=== PATIENT | male | born 1965 | race Caucasian/White ===

== ENCOUNTER 2018-03-08 05:40 | Day surgery (SDC) | payer OTHER ==
[~2018-03-08] VITALS: Ht 175.3 cm; Wt 108.9 kg
[~2018-03-08 05:40] MED LIST: ASPIRIN EC81 MG PO; CEPHALEXIN500 MG PO; CYMBALTA30 MG PO; DILAUDID4 MG PO; FOLIC ACID0.4 MG PO; LIDODERM700 MG TOP; LISINOPRIL20 MG PO; LISINOPRIL5 MG PO; METOPROLOL TART25 MG PO; NEURONTIN300 MG PO; NORCO 5-325 TA1 EACH PO; OXYCODONE HCL E10 MG PO; OXYCODONE HCL20 M1 PO; PERCOCET 10-321 EACH PO; PRAVASTATIN SOD10 MG PO; PRILOSEC OTC20 MG PO; SIMVASTATIN20 MG PO; TRAMADOL HCL50 MG; TRAMADOL HCL50 MG PO; TRAZODONE HCL100 MG PO; TYLENOL325 MG PO; VITAMIN D50000 UNI1 PO; WARFARIN SODIUM5 MG PO; WELLBUTRIN SR150 MG PO; XARELTO10 MG PO
--- NOTE | 2018-03-08 09:20 | NUR ---
03/08/18 0920 Shannan Varghese 0913 PATIENT ARRIVES TO PACU WITH EYES CLOSED, REPSONSIVE TO VERBAL STIMULI, THEN BACK TO SLEEP. RESP EVEN AND UNLABORED, MASK AT 15 LITERS ON ARRIVAL, DECREASED TO 6 LITERS, SATS 100%.
--- NOTE | 2018-03-08 10:25 | NUR ---
PT ARRIVES TO DS RM 5 FROM PACU AWAKE AND ALERT. PT RESP EVEN AND UNLABORED ON RA. PT HAS COFFEE IN HAND, TOLERATING PO. PT HAS ICE IN PLACE ON ABD AND PILLOW TO BRACE CDB. PT RATES PAIN 7/10 ON ARRIVAL AND DENIES N/V. PT SPOUSE AT BEDSIDE. SCD'S IN PLACE, CALL LIGHT WITHIN REACH. PT PROVIDED ICED WATER AND APPLESAUCE.
--- NOTE | 2018-03-08 11:03 | NUR ---
PT HAS URGE TO VOID. PT SITS AT EDGE OF BED BEFORE STANDING AND DENIES ANY DIZZINESS OR NAUSEA. PT AMBULATES TO BATHROOM WITH RN ASSIST STEADY WITH NO PROBLEM, ABLE TO VOID 150 MLS JOSEPHINE URINE. BACK IN RM TO GET DRESSED. PT SPOUSE REMAINS IN PT RM.
[2018-03-08] MEDS ORDERED: OXYCODONE HCL5 M1 PO (11:10)
--- NOTE | 2018-03-08 11:24 | OR ---
[facility] [address], [place] [address] Signed DATE OF OPERATION: 03/08/2018 SURGEON: Chinedu Nguyen MD PREOPERATIVE DIAGNOSES: 1. Chronic cholecystitis, cholelithiasis. 2. Incarcerated umbilical hernia. POSTOPERATIVE DIAGNOSES: 1. Chronic cholecystitis with cholelithiasis. 2. Cholesterolosis. 3. Incarcerated umbilical hernia (1 cm). PROCEDURES: 1. Laparoscopic cholecystectomy without intraoperative cholangiogram. 2. Primary umbilical herniorrhaphy without mesh. ESTIMATED BLOOD LOSS: None. FINDINGS: Taras had a 1 cm fascial defect representing his umbilical hernia. The gallbladder itself was somewhat thin with significant cholesterolosis. He also had multiple small 3-4 mm yellow cholesterol gallstones. He had significant chronic inflammatory changes down around the cystic duct and the triangle of Calot. We had transected the cystic duct next to the gallbladder and we were unable to pass the intraoperative cholangiocatheter down the cystic duct. Consequently, the intraoperative cholangiogram was abandoned. INDICATIONS: Taras is a 52-year-old gentleman, who has undergone a laparoscopic gastric bypass surgery the year previously. He is down just over 170 pounds. As is common, he now has symptomatic cholelithiasis. He had been for his ultrasound and of course cholelithiasis was confirmed. I have helped Taras in the past for a supraumbilical epigastric hernia utilizing 4.3 cm round Ventralex mesh. In addition, he has been going to the athletic club and exercising regularly and lifting weights every week. He has noticed a painful lump at the bottom of his umbilicus. He said he is not able to push it back inside. He was then therefore, referred to my office. Physical exam confirmed his incarcerated umbilical hernia. I gave Taras a booklet on the gallbladder. We discussed its location and function. We have discussed laparoscopic versus open cholecystectomy. We Electronically Signed By: CHINEDU NGUYEN MD 03/08/18 1124 PATIENT NAME: TARAS SELLERS OPERATIVE REPORT DATE OF : 69 REPORT #: [id number] PHYSICIAN: CHINEDU NGUYEN MD PCP: FERNANDO MALONEY MD REPORT IS CONFIDENTIAL AND NOT TO BE RELEASED WITHOUT AUTHORIZATION [facility] [address] [place] [id number] Signed also discussed his umbilical hernia. I explained to Taras we would gently use mesh to repair these, but in the setting of gallbladder surgery, we gently omit the mesh because of our concerns of infection. Consequently, his risk of recurrent umbilical hernia is slightly higher without the mesh. He also understands there is risk to his gallbladder surgery including, but not limited to bleeding, infection, scarring, change in contour of the skin as well as damage to bowel, damage to main bile duct, incisional hernias, and other unforeseen comorbidities. Also, any patient who presents with gallstones for gallbladder surgery has a 3-7% chance of having retained gallstones in their common bile duct regardless of preoperative findings. He had expressed understanding and wished to proceed. PROCEDURE NOTE: I had met with Taras in our preop area. After this, he was taken into our operating room and placed in the supine position under general endotracheal tube anesthesia. He was given preoperative antibiotics along with subcutaneous heparin. SCDs were utilized. He was then prepped and draped in the usual sterile fashion. We utilized his previous vertical supraumbilical incision. We excised that scar sharply and we carried that down and around the umbilicus bluntly and with the help of the cautery. He had a 1 cm fascial defect. His epigastric hernia was sufficiently cephalad. The mesh did not overlap his umbilical fascial defect. The Kade trocar was placed without difficulty. The remaining trocars were placed under direct visualization without difficulty. He had just very minimal adhesions to his previous right lower quadrant McBurney's appendectomy scar. He had no adhesions in the upper abdomen including up over the stomach. After this, the gallbladder was grasped and elevated the right upper quadrant. We had taken pictures throughout for photodocumentation. He had some chronic scarring of the omentum to the proximal one-half of the gallbladder including the cystic duct in the area of the triangle of Calot. This was all dissected free with judicious cautery and bluntly. The cystic artery was easily identified and a clip was placed and it was divided. We then opened the cystic duct up next to the gallbladder and found that it was transected. We had tried to place our intraoperative cholangiocatheter and we could see the saline exiting into some of the soft tissue. We then placed a little bit of contrast through it to confirm that. We went back and looked at that carefully and sure enough, our intraoperative cholangiocatheter was actually just outside the cystic duct. We took a few minutes to try to pass the intraoperative cholangiocatheter down the cystic duct without success. Consequently, we went ahead and secured the cystic duct stump with 3 sequential clips. After this, the gallbladder was carefully removed from the gallbladder fossa with the help of the cautery and placed into an EndoCatch bag. The right upper quadrant was irrigated and suctioned out until clear. We used our laparoscopic suturing device to pass 0 Vicryl suture on either side of the fascia of the subxiphoid trocar site. This was tied down to close this fascia primarily. After this, all the gas was allowed to escape and the all the trocars were removed along with the gallbladder. The gallbladder was opened on the back table by our circulating nurse. It Electronically Signed By: CHINEDU NGUYEN MD 03/08/18 1124 PATIENT NAME: TARAS SELLERS OPERATIVE REPORT DATE OF : 69 REPORT #: [id number] PHYSICIAN: CHINEDU NGUYEN MD PCP: FERNANDO MALONEY MD REPORT IS CONFIDENTIAL AND NOT TO BE RELEASED WITHOUT AUTHORIZATION [facility] [address], [place] [address] Signed was found to have significant cholesterolosis. He also had multiple small 3-4 mm yellow cholesterol stones. The umbilical fascial defect was then closed transversely with a running #1 Prolene suture. Local anesthetic was then copiously injected into all trocar sites. The umbilical skin was held down to the midline fascia with an interrupted 2-0 PDS suture. The skin and dermis of each trocar site were closed with interrupted 3-0 subcuticular Monocryl sutures. Dry gauze and tape were then applied to all incisions. After this, Taras was awakened from his anesthesia, extubated in the OR, and taken to recovery room in stable condition. MD MICHELLE Henry/MODL /[id number] cc: MD Fernando Henry MD Copies: CHINEDU NGUYEN MD ~ Electronically Signed By: CHINEDU NGUYEN MD 03/08/18 1124 PATIENT NAME: TARAS SELLERS OPERATIVE REPORT DATE OF : 69 REPORT #: [id number] PHYSICIAN: CHINEDU NGUYEN MD PCP: FERNANDO MALONEY MD REPORT IS CONFIDENTIAL AND NOT TO BE RELEASED WITHOUT AUTHORIZATION
--- NOTE | 2018-03-08 11:39 | NUR ---
[id number]: DC INSTRUCTIONS GIVEN TO PT AND SPOUSE. PAIN SCRIPT GIVEN TO PT. PT TRANSFERS SELF TO AND PT DC'S FROM DS RM 5 TO HOME.
== END 2018-03-08 11:25 | disposition home or self-care (01) ==
LOC: DS 05:40
PROVIDERS: Colon & Rectal Surgery
PROC: 0FT44ZZ Resection of Gallbladder, Percutaneous Endoscopic Approach (ICD-10-PCS; principal; 2018-03-08 06:45)
DX: K80.10 Calculus of gallbladder with chronic cholecystitis without obstruction (principal); K42.0 Umbilical hernia with obstruction, without gangrene; I10 Essential (primary) hypertension; E78.5 Hyperlipidemia, unspecified; E66.9 Obesity, unspecified; E11.9 Type 2 diabetes mellitus without complications; M54.9 Dorsalgia, unspecified; F43.10 Post-traumatic stress disorder, unspecified; G47.33 Obstructive sleep apnea (adult) (pediatric); F41.9 Anxiety disorder, unspecified; F11.90 Opioid use, unspecified, uncomplicated; F12.90 Cannabis use, unspecified, uncomplicated; F17.210 Nicotine dependence, cigarettes, uncomplicated; Z99.89 Dependence on other enabling machines and devices; Z88.8 Allergy status to other drugs, medicaments and biological substances; Z79.899 Other long term (current) drug therapy
CPT/HCPCS: 00790; 88304; J0330; J0360; J0690; J1100; J1170; J1644; J1885; J2250; J2405; J2704; J3010; J7120

== ENCOUNTER 2020-06-22 20:13 | Emergency (ER) | payer OTHER ==
[~2020-06-22] VITALS: Ht 175.3 cm; Wt 79.8 kg
[~2020-06-22 20:13] MED LIST changes: +OXYCODONE HCL5 M1 PO
[2020-06-22] MEDS ORDERED: HYDROCODON-ACE1 EA10 PO (21:50)
[2020-06-22] MEDS ORDERED: CYCLOBENZAPRINE10 MG PO ×2 (21:50→22:00)
[2020-06-22] MEDS ORDERED: PERCOCET 5-3251 EACH PO (22:00)
== END 2020-06-22 22:11 | disposition home or self-care (01) ==
LOC: ED 20:13
DX: M54.41 Lumbago with sciatica, right side (principal); F17.200 Nicotine dependence, unspecified, uncomplicated; Z88.8 Allergy status to other drugs, medicaments and biological substances; Z88.5 Allergy status to narcotic agent
CPT/HCPCS: 99283

== ENCOUNTER 2020-07-15 11:28 | Emergency (ER) | payer OTHER ==
[~2020-07-15] VITALS: Ht 175.3 cm; Wt 79.8 kg
[~2020-07-15 11:28] MED LIST changes: +CYCLOBENZAPRINE10 MG PO; +HYDROCODON-ACE1 EA10 PO; +PERCOCET 5-3251 EACH PO
--- OUTSIDE RECORDS SUMMARY | 2020-07-15 11:32 | XMS ---
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 Maya VISIT COUNT (12 MO.) [address] [place] [address] TOTAL 3 NOTE: Visits indicate total known visits. ED/UCC VISIT TRACKING (12 MO.) 07/15/2020 11:29 [facility] Cheng OR TYPE: Emergency COMPLAINT: - BACK PAIN 07/14/2020 15:23 ARLINE Cheng OR TYPE: Emergency COMPLAINT: - BACK PAIN 06/22/2020 20:14 ARL[facility] Cheng OR TYPE: Emergency COMPLAINT: - BACK PAIN/ NON INJ DIAGNOSES: - Allergy status to other drugs, medicaments and biological substances - Nicotine dependence, unspecified, uncomplicated - Low back pain - Lumbago with sciatica, right side - Allergy status to narcotic agent INPATIENT VISIT TRACKING (12 MO.) No inpatient visits to display in this time frame [email or web address]
[2020-07-15] MEDS ORDERED: PREDNISONE20 MG PO (13:55)
[2020-07-15] MEDS ORDERED: OXYCODONE HCL5 MG PO (13:55)
[2020-07-15] MEDS ORDERED: METHOCARBAMOL750 MG NG (14:12)
== END 2020-07-15 14:18 | disposition home or self-care (01) ==
LOC: ED 11:28
DX: M54.41 Lumbago with sciatica, right side (principal); F17.200 Nicotine dependence, unspecified, uncomplicated; Z88.8 Allergy status to other drugs, medicaments and biological substances; Z88.5 Allergy status to narcotic agent; Z79.899 Other long term (current) drug therapy
CPT/HCPCS: 96372; 99283; J1100; J1885

== ENCOUNTER 2020-07-22 08:39 | Emergency (ER) | payer OTHER ==
[~2020-07-22] VITALS: Ht 175.3 cm; Wt 79.8 kg
[~2020-07-22 08:39] MED LIST changes: +METHOCARBAMOL750 MG NG; +OXYCODONE HCL5 MG PO; +PREDNISONE20 MG PO
--- OUTSIDE RECORDS SUMMARY | 2020-07-22 08:42 | XMS ---
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 CRITERIA MET - [facility] - 2 Visits in 30 Days CARE PROVIDERS FERNANDO MALONEY Internal Medicine 09/02/2018-Current PHONE: [phone] CRISTA VICTORIA Physician 09/02/2018-Current PHONE: [phone] Ramez has no Care Guidelines for this patient. Maya VISIT COUNT (12 MO.) [address] [place] [address] TOTAL 4 NOTE: Visits indicate total known visits. ED/UCC VISIT TRACKING (12 MO.) 07/22/2020 08:40 ARLINE Cheng OR TYPE: Emergency COMPLAINT: - R HIP/LEG PAIN 07/15/2020 11:29 ARLINE Cheng OR TYPE: Emergency COMPLAINT: - BACK PAIN DIAGNOSES: - Allergy status to other drugs, medicaments and biological substances - Nicotine dependence, unspecified, uncomplicated - Lumbago with sciatica, right side - Other half-way (current) drug therapy - Allergy status to narcotic agent 07/14/2020 15:23 ARLINE Cheng OR TYPE: Emergency [...] visits to display in this time frame [email or web address]
[2020-07-22] MEDS ORDERED: DILAUDID2 MG PO ×2 (15:02→15:11)
== END 2020-07-22 16:21 | disposition home or self-care (01) ==
LOC: ED 08:39
DX: M51.16 Intervertebral disc disorders with radiculopathy, lumbar region (principal); F17.200 Nicotine dependence, unspecified, uncomplicated; Z88.8 Allergy status to other drugs, medicaments and biological substances; Z88.5 Allergy status to narcotic agent; Z79.899 Other long term (current) drug therapy
CPT/HCPCS: 72100; 72148; 96372; 99284-25; A9270; J1170; J1885